=== PATIENT | female | born 1960 | race Caucasian/White ===

== ENCOUNTER 2019-11-02 17:05 | Emergency (ER) | payer OTHER, MEDICAID ==
[~2019-11-02] VITALS: Ht 170.2 cm; Wt 89.8 kg
--- NOTE | 2019-11-02 17:05 | NUR ---
PT JOSÉ MIGUELA BLS TO ER BED 09
[2019-11-02 17:08] VITALS: BP 158/105
--- NOTE | 2019-11-02 17:14 | NUR ---
58 Y/O FEMALE BIBA BLS FROM HOME C/O UPPER QUADRANT ABD PAIN THAT RADIATES TO RT SHOULDER X 2 DAYS. DENIES VOMITING/DIARRHEA. STATES ABD PAIN RADIATES TO RT SHOULDER. +CONSTIPATION. ABD SOFT, ROUND, TENDER TO PALP. BOWEL SOUNDS PRESENT X 4 QUAD. RR EVEN AND UNLABORED. PLACED ON LEAF SORTER, PULSE OX, AND BP CUFF. MEDHX: HTN, MIGRAINES, GALLBLADDER REMOVAL
--- NOTE | 2019-11-02 17:26 | NUR ---
PT AMBULATED TO RESTROOM FOR COLLECTION OF URINE
[2019-11-02 17:44] LABS: BASOPHILS # (AUTO) 0.1 K/uL (0.00-0.22); BASOPHILS % (AUTO) 0.5 % (0.0-2.0); EOSINOPHILS % (AUTO) 0.1 % (0.0-4.0); LYMPHOCYTES # (AUTO) 0.7 K/uL (2.5-16.5); LYMPHOCYTES % (AUTO) 6.2 % (20.5-51.1); MEAN CORPUSCULAR HEMOGLOBIN 25 pg (27-31); MEAN CORPUSCULAR HGB CONC 32 g/dL (33-37); MEAN CORPUSCULAR VOLUME 79.9 fL (80-94); MONOCYTES # (AUTO) 0.7 K/uL (0.8-1.0); MONOCYTES % (AUTO) 6.2 % (1.7-9.3); NEUTROPHILS # (AUTO) 9.7 K/uL (1.8-7.7); PLATELET COUNT (AUTO) 408 K/uL (140-450); RED BLOOD CELL COUNT(AUTO) 5.12 MIL/uL (4.20-5.40); WHITE BLOOD COUNT (AUTO) 11.1 K/uL (4.8-10.8)
[2019-11-02 17:59] LABS: ALBUMIN 3.8 g/dL (3.4-5.0); ANION GAP 16.6 (8-16); CARBON DIOXIDE 24.3 mmol/L (21-32); POTASSIUM 3.9 mmol/L (3.5-5.1); TOTAL BILIRUBIN 0.4 mg/dL (0.0-1.0)
[2019-11-02 18:53] LABS: BILIRUBIN,URINE 2+ (NEGATIVE); BLOOD, URINE 1+ (NEGATIVE); LEUKOCYTE ESTERASE ,URINE NEGATIVE (NEGATIVE); NITRITE, URINE NEGATIVE (NEGATIVE); UGLUCOSE NEGATIVE (NEGATIVE)
[2019-11-02] MEDS ORDERED: DICYCLOMINE HCL LIQUID 20 MG, ALUMINUM HYD/MAG/SIMETHICONE 30 ML, LIDOCAINE VISCOUS 2% ... PO ONE ×3 (19:00)
[2019-11-02] MEDS ORDERED: ALUMINUM HYD/MAG/SIMETHICONE 30 ML UDC ONE (19:03)
[2019-11-02] MEDS ORDERED: DICYCLOMINE HCL LIQUID 10 MG/5 ML UDC ONE (19:03)
[2019-11-02] MEDS ORDERED: LIDOCAINE VISCOUS 2% 20 ML UDC ONE (19:03)
[2019-11-02 19:09] LABS: APPEARANCE,URINE CLEAR (CLEAR); COLOR,URINE AMBER (YELLOW)
--- NOTE | 2019-11-02 19:18 | NUR ---
REPORT GIVEN TO LITA DEMARCO FOR CONTINUITY OF CARE
[2019-11-02 19:21] LABS: RBC,URINE 0-5 /HPF (0-5); WBC,URINE NONE SEEN /HPF (0-5)
--- NOTE | 2019-11-02 19:30 | NUR ---
PT TAKEN TO CT VIA WHEELCHAIR
--- NOTE | 2019-11-02 19:30 | NUR ---
RECEIVED REPORT FROM VAZQUEZ DEMARCO
--- NOTE | 2019-11-02 22:25 | NUR ---
Patient discharged with v/s stable. Written and verbal after care instructions given and explained. Patient alert, oriented and verbalized understanding of instructions. Ambulatory with steady gait. All questions addressed prior to discharge. ID band removed. Patient advised to follow up with PMD. Rx of ZOFRAN, MYLANTA, PEPCID given. Patient educated on indication of medication including possible reaction and side effects. Opportunity to ask questions provided and answered.
[2019-11-02 23:21] VITALS: BP 136/94
== END 2019-11-02 22:25 | disposition home or self-care (01) ==
LOC: MED 17:05
DX: R10.2 Pelvic and perineal pain (principal); I10 Essential (primary) hypertension; G43.909 Migraine, unspecified, not intractable, without status migrainosus; M51.36 Other intervertebral disc degeneration, lumbar region; N28.89 Other specified disorders of kidney and ureter; Z90.49 Acquired absence of other specified parts of digestive tract; Z98.84 Bariatric surgery status
CPT/HCPCS: 36415; 74177; 80053; 81001; 81025; 83690; 85025; 99285; Q9967